=== PATIENT | male | born 1960 | race Caucasian/White ===

== ENCOUNTER 2021-06-15 16:38 | Inpatient (IN) ==
[2021-06-15] MEDS ORDERED: Naloxone 0.4 MG/ML INJ IVP PRN (19:18)
[2021-06-15] MEDS ORDERED: Acetaminophen 325 MG TABLET PO PRN (19:18)
[2021-06-15] MEDS ORDERED: Ondansetron 4 MG/2 ML VIAL IVP PRN (19:18)
[2021-06-15] MEDS ORDERED: Perflutren Lipid Microsphere 1.3 ML in 0.9 % Sodium Chloride 8.7 ML IVP PRN (19:20)
[2021-06-15] MEDS ORDERED: *HR* Heparin 5,000 UNIT/ML VIAL IVP PRN ×2 (19:23)
[2021-06-15] MEDS ORDERED: Ipratropium/Albuterol Neb 3 ML IH PRN (20:00)
[2021-06-15 21:13] LABS: Hematocrit 43.4 % (37.5-50.1); Hemoglobin 14.7 g/dL (12.9-16.9); Mean Corpuscular HGB Conc 33.9 g/dL (31.6-35.5); Mean Corpuscular Hemoglobin 32.8 pg (28.0-33.3); Mean Corpuscular Volume 96.9 fL (83.0-100.0); Platelet Count 246 K/mcL (140-400); Red Blood Count 4.48 M/mcL (4.19-5.50); Red Cell Distribution Width 14.3 % (11.5-14.5); White Blood Count 9.1 K/mcL (4.3-11.1)
[2021-06-15 21:23] LABS: INR 1.2; Prothrombin Time 13.8 Seconds (9.4-12.1)
[2021-06-15] MEDS: Azithromycin 500 MG in 0.9 % Sodium Chloride 250 ML IVPB SCH (21:43)
[2021-06-15] MEDS: MethylPREDNISolone 40 MG/ML VIAL IVP SCH (21:43)
[2021-06-15] MEDS: Heparin 25,000UNIT/250ML 1/2NS 25,000 UNIT/250 ML IV.SOLN IVC SCH (22:38)
[2021-06-16 00:39] LABS: Adenovirus Not Detected (Not Detect); Bordetella Pertussis Not Detected (Not Detect); Chlamydophila pneumoniae Not Detected (Not Detect); Coronavirus 229E Not Detected (Not Detect); Coronavirus HKU1 Not Detected (Not Detect); Coronavirus NL63 Not Detected (Not Detect); Coronavirus OC43 Not Detected (Not Detect); Human Metapneumovirus Not Detected (Not Detect); Human Rhinovirus/Enterovirus Not Detected (Not Detect); Influenza A Subtype 2009 H1 Not Detected (Not Detect); Influenza B Not Detected (Not Detect); Parainfluenza Virus 1 Not Detected (Not Detect); Parainfluenza Virus 2 Not Detected (Not Detect); Parainfluenza Virus 3 Not Detected (Not Detect); Parainfluenza Virus 4 Not Detected (Not Detect); Respiratory Syncytial Virus Not Detected (Not Detect); SARS-CoV-2 Not Detected (Not Detect)
[2021-06-16 00:40] LABS: Mycoplasma pneumoniae Not Detected (Not Detect)
[2021-06-16 02:15] LABS: Basophils % 0.5 %; Eosinophils # 0.1 K/mcL (0.0-0.6); Eosinophils % 0.6 %; Hematocrit 43.4 % (37.5-50.1); Hemoglobin 14.9 g/dL (12.9-16.9); Immature Granulocytes % 0.2 % (0-4); Lymphocytes # 0.5 K/mcL (0.6-4.6); Lymphocytes % 5.7 %; Mean Corpuscular HGB Conc 34.3 g/dL (31.6-35.5); Mean Corpuscular Hemoglobin 33.3 pg (28.0-33.3); Mean Corpuscular Volume 97.1 fL (83.0-100.0); Mean Platelet Volume 11.1 fL (9.4-12.4); Monocytes # 0.3 K/mcL (0.0-1.3); Monocytes % 2.8 %; Platelet Count 256 K/mcL (140-400); Red Blood Count 4.47 M/mcL (4.19-5.50); Red Cell Distribution Width 14.2 % (11.5-14.5); Segmented Neutrophils % 90.2 %; White Blood Count 8.9 K/mcL (4.3-11.1)
[2021-06-16 02:22] LABS: INR 1.2; Prothrombin Time 13.9 Seconds (9.4-12.1)
[2021-06-16 02:34] LABS: Albumin 3.7 g/dL (3.5-5.7); Albumin/Globulin Ratio 1.4 (1.1-2.2); Bilirubin,Direct 0.2 mg/dL (0.0-0.2); Bilirubin,Indirect 0.4 mg/dL (0.0-1.0); Bilirubin,Total 0.6 mg/dL (0.3-1.0); Globulin 2.7 g/dL (2.4-3.5); Total Protein 6.4 g/dL (6.4-8.9)
[2021-06-16 02:35] LABS: Chol/HDL Ratio 5.3 (0-4.9)
[2021-06-16 02:37] LABS: BUN/Creatinine Ratio 11 (6-26); Blood Urea Nitrogen 14 mg/dL (6-20); Calcium 8.7 mg/dL (8.6-10.3); Carbon Dioxide 25 mEq/L (23-29); Chloride 107 mEq/L (98-107); Glucose 173 mg/dL (70-105); Magnesium 1.8 mg/dL (1.6-2.6); Osmolality,Calculated 301 (280-300); Potassium 3.7 mEq/L (3.5-5.1); Sodium 143 mEq/L (136-145); eGFR For African Americans > 60 (> 60); eGFR For Non-African Americans 56 (> 60)
[2021-06-16 02:46] LABS: Thyroid Stimulating Hormone 1.555 mcIU/mL (0.340-5.600)
[2021-06-16 03:10] LABS: Hepatitis B Surface Antigen Nonreactive (Nonreactive)
[2021-06-16 03:38] LABS: Hepatitis C Virus Antibody Nonreactive (Nonreactive)
[2021-06-16 03:39] LABS: Hepatitis B Core IgM Nonreactive (Nonreactive)
[2021-06-16 03:40] LABS: Hepatitis A Antibody IgM Nonreactive (Nonreactive)
[2021-06-16] MEDS: MethylPREDNISolone 40 MG/ML VIAL IVP SCH ×2 (05:25→17:29)
[2021-06-16] MEDS ORDERED: *HR* Heparin 5,000 UNIT/ML VIAL IVP PRN ×2 (05:30)
[2021-06-16] MEDS: Azithromycin 500 MG in 0.9 % Sodium Chloride 250 ML IVPB SCH (08:41)
[2021-06-16] MEDS ORDERED: Isovue-370 500 ML BOTTLE IVP ONE (10:28)
[2021-06-16 11:00] LABS: Estimated Average Glucose 128 mg/dl; Hemoglobin A1C 6.1 %
[2021-06-16] MEDS: Furosemide 40 MG/4 ML VIAL IVP SCH ×2 (11:25→20:36)
[2021-06-16] MEDS: Aspirin 81 MG TAB.CHEW PO SCH (11:25)
[2021-06-16] MEDS: Heparin 25,000UNIT/250ML 1/2NS 25,000 UNIT/250 ML IV.SOLN IVC SCH (14:56)
[2021-06-16] MEDS: Ipratropium 1 PUFF INHALER IH SCH ×2 (17:48→19:58)
[2021-06-16] MEDS: Ipratropium/Albuterol Neb 3 ML IH SCH (23:00)
[2021-06-17] MEDS ORDERED: Ipratropium 1 PUFF INHALER IH PRN
[2021-06-17] MEDS ORDERED: Ipratropium 1 PUFF INHALER IH SCH
[2021-06-17] MEDS: Ipratropium/Albuterol Neb 3 ML IH SCH ×5 (04:08→20:04)
[2021-06-17 04:43] LABS: Bilirubin,Urine Negative (Negative); Blood,Urine Negative (Negative); Clarity,Urine Clear (Clear); Color,Urine Light-Yellow (Yellow); Glucose,Urine (UA) Normal (Normal); Ketones,Urine Negative (Negative); Leukocyte Esterase,Urine Negative (Negative); Nitrite,Urine Negative (Negative); Protein,Urine Negative (Neg-Trace); Specific Gravity,Urine 1.026 (1.010-1.025); Urobilinogen,Urine Normal (Normal)
[2021-06-17 05:54] LABS: Basophils % 0.1 %; Hematocrit 42.2 % (37.5-50.1); Hemoglobin 13.9 g/dL (12.9-16.9); Immature Granulocytes % 0.5 % (0-4); Lymphocytes # 0.8 K/mcL (0.6-4.6); Lymphocytes % 4.2 %; Mean Corpuscular HGB Conc 32.9 g/dL (31.6-35.5); Mean Corpuscular Hemoglobin 32.5 pg (28.0-33.3); Mean Corpuscular Volume 98.6 fL (83.0-100.0); Mean Platelet Volume 11.5 fL (9.4-12.4); Monocytes # 0.9 K/mcL (0.0-1.3); Monocytes % 4.8 %; Platelet Count 236 K/mcL (140-400); Red Blood Count 4.28 M/mcL (4.19-5.50); Red Cell Distribution Width 14.4 % (11.5-14.5); Segmented Neutrophils % 90.4 %
[2021-06-17 05:58] LABS: Neutrophils # 16.6 K/mcL (1.6-8.9); White Blood Count 18.4 K/mcL (4.3-11.1)
[2021-06-17 06:11] LABS: Alanine Aminotransferase 41 Units/L (7-52); Albumin 3.7 g/dL (3.5-5.7); Albumin/Globulin Ratio 1.4 (1.1-2.2); Alkaline Phosphatase 58 Units/L (34-104); Aspartate Amino Transferase 21 Units/L (13-39); BUN/Creatinine Ratio 16 (6-26); Bilirubin,Direct 0.1 mg/dL (0.0-0.2); Bilirubin,Indirect 0.3 mg/dL (0.0-1.0); Bilirubin,Total 0.4 mg/dL (0.3-1.0); Blood Urea Nitrogen 18 mg/dL (6-20); Calcium 8.9 mg/dL (8.6-10.3); Carbon Dioxide 24 mEq/L (23-29); Chloride 107 mEq/L (98-107); Globulin 2.7 g/dL (2.4-3.5); Glucose 159 mg/dL (70-105); Osmolality,Calculated 295 (280-300); Potassium 4.2 mEq/L (3.5-5.1); Sodium 140 mEq/L (136-145); Total Protein 6.4 g/dL (6.4-8.9); eGFR For African Americans > 60 (> 60); eGFR For Non-African Americans > 60 (> 60)
[2021-06-17] MEDS: Heparin 25,000UNIT/250ML 1/2NS 25,000 UNIT/250 ML IV.SOLN IVC SCH ×2 (06:22→16:15)
[2021-06-17] MEDS: MethylPREDNISolone 40 MG/ML VIAL IVP SCH (06:24)
[2021-06-17] MEDS: Furosemide 40 MG/4 ML VIAL IVP SCH (07:39)
[2021-06-17] MEDS: Aspirin 81 MG TAB.CHEW PO SCH (07:39)
[2021-06-17] MEDS: Azithromycin 500 MG in 0.9 % Sodium Chloride 250 ML IVPB SCH (07:39)
[2021-06-17] MEDS ORDERED: levoFLOXacin 750 MG/150 ML 750 MG/150 ML BAG IVPB SCH (09:30)
[2021-06-17] MEDS ORDERED: *HR* FentaNYL (PF) 100 MCG/2 ML VIAL ONE (11:41)
[2021-06-17] MEDS ORDERED: *HR* Midazolam HCl 2 MG/2 ML VIAL ONE (11:41)
[2021-06-17] MEDS ORDERED: 0.9 % Sodium Chloride 1,000 ML ONE (11:41)
[2021-06-17] MEDS ORDERED: Nitroglycerin 1,000 MCG/5 ML VIAL IV ONE (11:42)
[2021-06-17] MEDS ORDERED: Heparin 1,000 UNITS/500 mL 500 ML ONE (11:42)
[2021-06-17] MEDS ORDERED: *HR* Heparin 10,000 UNIT/10 ML VIAL ONE (11:42)
[2021-06-17] MEDS ORDERED: ISOVUE-370 200 ML INFUS..BTL ONE (11:42)
[2021-06-17] MEDS ORDERED: Furosemide 40 MG/4 ML VIAL IVP ONE (14:15)
[2021-06-17] MEDS ORDERED: Furosemide 240 MG in 0.9 % Sodium Chloride 96 ML IVC SCH (14:30)
[2021-06-17] MEDS ORDERED: Milrinone Premix 20 MG/100 ML 20 MG/100 ML BAG IVC SCH (15:00)
[2021-06-17 18:50] VITALS: BP 144/107; PULSE 85; TEMP 97.8
[2021-06-17 20:05] VITALS: O2SAT 93
== END 2021-06-17 21:53 | disposition short-term general hospital (02) | DRG 190 ==
LOC: 2ANU → SUATTDRO 18:44 → 2NNU 06-17 14:17
PROVIDERS: ADMIT Internal Medicine; ATTEND Pharmacist